=== PATIENT | male | born 1995 | race Caucasian/White ===

== ENCOUNTER 2019-06-16 14:57 | Emergency (ER) | payer OTHER ==
[~2019-06-16] VITALS: Ht 190.5 cm; Wt 118.8 kg
[2019-06-16 15:12] VITALS: BP 168/99
--- NOTE | 2019-06-16 15:17 | NUR ---
ambulated to bed 6
--- NOTE | 2019-06-16 15:20 | NUR ---
Pt presents to the ER c/o right eye pain x 7 days, redish sclera, tearing. Denies trauma or injury, constipation, or heavy lifting. Denies eye discharge. Pt reports blurry vision and photophobia. Pt seen at urgent and referred to come to ER. PATIENT STATES PAIN OF 8/10 AT THIS TIME; VSS; PATIENT POSITIONED FOR COMFORT; HOB ELEVATED; BEDRAILS UP X1; BED DOWN. ER MD MADE AWARE OF PT STATUS.
[2019-06-16] MEDS ORDERED: TETRACAINE HCL/PF 0.5% OPTH 4 ML BTL OP ONE (16:00)
[2019-06-16] MEDS ORDERED: FLUOCINONIDE 0.05% OINT 30 GM TUBE TP SCH (16:30)
--- NOTE | 2019-06-16 16:30 | NUR ---
Dr. Sanchez is at bedside evaluating pt and implementing procedure.
[2019-06-16] MEDS ORDERED: FLUORESCEIN OPTH STRIP 1 MG ONE (16:36)
[2019-06-16] MEDS ORDERED: TOMOMETER 1 DEV DEV MC ONE (16:41)
[2019-06-16 17:12] VITALS: BP 151/79
--- NOTE | 2019-06-16 17:13 | NUR ---
Patient discharged with v/s stable. Written and verbal after care instructions given and explained. Patient verbalized understanding. Ambulatory with steady gait. All questions addressed prior to discharge. Advised to follow up with PMD.
== END 2019-06-16 17:13 | disposition home or self-care (01) ==
LOC: MED 14:57
DX: L53.9 Erythematous condition, unspecified (principal); H53.8 Other visual disturbances; Z89.029 Acquired absence of unspecified finger(s)
CPT/HCPCS: 99283